=== PATIENT | female | born 2000 | race Caucasian/White ===

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

== ENCOUNTER 2018-08-03 09:55 | Emergency (ER) | payer OTHER ==
[2018-08-03 10:18] VITALS: BP 126/78; PULSE 93; RESP 16; TEMP 98.2; O2SAT 100
--- NOTE | 2018-08-03 10:36 | C.PDOC ---
History Of Present Illness 18 y/o female presents to the ED with complaints of dizziness since waking up today. Patient states last night she developed a headache and accidentally took 1 tab of her mothers Lyrica. Reports she was half asleep, thought she took Tylenol or Motrin. Patient now complaints of feeling nauseous and dizzy. Denies any vomiting, syncope, visual changes, fever, neck stiffness, shortness of breath, or URI symptoms. LMP was 2 weeks ago. Time Seen by Provider: 08/03/18 10:20 Chief Complaint (Nursing): Medical Clearance History Per: Patient History/Exam Limitations: no limitations Onset/Duration Of Symptoms: Hrs Current Symptoms Are (Timing): Still Present Past Medical History Reviewed: Historical Data, Nursing Documentation, Vital Signs Vital Signs: Last Vital Signs Temp 98.2 F 08/03/18 10:12 Pulse 93 H 08/03/18 10:12 Resp 16 08/03/18 10:12 BP 126/78 08/03/18 10:12 Pulse Ox 100 08/03/18 10:12 - Medical History PMH: Asthma Family History: States: Unknown Family Hx - Social History Hx Alcohol Use: No Hx Substance Use: No - Immunization History Hx Tetanus Toxoid Vaccination: No Hx Influenza Vaccination: No Hx Pneumococcal Vaccination: No Review Of Systems Except As Marked, All Systems Reviewed And Found Negative. Constitutional: Negative for: Fever, Chills Eyes: Negative for: Vision Change ENT: Negative for: Nose Congestion Respiratory: Negative for: Cough Gastrointestinal: Positive for: Nausea. Negative for: Vomiting, Abdominal Pain Musculoskeletal: Negative for: Neck Pain Neurological: Positive for: Headache (last night), Dizziness. Negative for: Weakness, Numbness, Change in Speech, Confusion Physical Exam - Physical Exam Appears: Non-toxic, No Acute Distress, Other (Speaking in full sentences) Skin: Warm, Dry, Other (No pallor or icterus) Head: Atraumatic, Normacephalic Eye(s): bilateral: Normal Inspection (no nystagmus), PERRL, EOMI Oral Mucosa: Moist Neck: Normal ROM, Supple Chest: Symmetrical Cardiovascular: Rhythm Regular, Other (Normal S1, S2) Respiratory: No Rhonchi, No Wheezing, Other (Lungs clear to auscultation bilaterally, normal inspiratory effort) Gastrointestinal/Abdominal: Bowel Sounds (normal), Soft, No Tenderness Extremity: Bilateral: Atraumatic, Normal Color And Temperature Neurological/Psych: Oriented x3, Normal Speech, Normal Cranial Nerves, Normal Motor (5/5 strength throughout), Normal Sensation Gait: Steady ED Course And Treatment O2 Sat by Pulse Oximetry: 100 (RA) Pulse Ox Interpretation: Normal Medical Decision Making Medical Decision Making: Plan: POC urine preg ordered. Progress: POC negative. Reassured patient of normal exam on today's visit. Discussed the side effects of the medication, which include dizziness. Patient remains AAOx3, neurologically intact, and is stable for d/c home. Advised patient to follow up with PMD for further evaluation. Disposition Counseled Patient/Family Regarding: Diagnosis - Disposition Referrals: [facility] [Outside] Disposition: HOME/ ROUTINE Disposition Time: 10:37 Condition: STABLE Additional Instructions: SARI MARIA, thank you for letting us take care of you today. Your provider was Elizabeth Raman MD and you were treated for TOOK THE WRONG MEDICATION. The emergency medical care you received today was directed at your acute symptoms. If you were prescribed any medication, please fill it and take as directed. It may take several days for your symptoms to resolve. Return to the Emergency Department if your symptoms worsen, do not improve, or if you have any other problems. Please contact your doctor or call one of the physicians/clinics you have been referred to that are listed on the Patient Visit Information form that is included in your discharge packet. Bring any paperwork you were given at discharge with you along with any medications you are taking to your follow up visit. Our treatment cannot replace ongoing medical care by a primary care provider outside of the emergency department. Thank you for allowing the [facility] team to be part of your care today. Instructions: Dizziness, Nonvertigo, (DC), Adverse Drug Reactions, Adult (DC) Forms: General Discharge Instructions, [facility] (Greek), School Excuse, Work Excuse - POA Present On Arrival: None - Clinical Impression Clinical Impression: Drug ingestion, accidental, Dizziness - Scribe Statement The provider has reviewed the documentation as recorded by the Abhijit Barlow Provider Attestation: All medical record entries made by the Nonaibelroy were at my direction and personally dictated by me. I have reviewed the chart and agree that the record accurately reflects my personal performance of the history, physical exam, medical decision making, and the department course for this patient. I have also personally directed, reviewed, and agree with the discharge instructions and disposition.
== END 2018-08-03 10:58 | disposition home or self-care (01) ==
LOC: C.ER 09:55
DX: T42.6X1A Poisoning by other antiepileptic and sedative-hypnotic drugs, accidental (unintentional), initial encounter (principal); R42 Dizziness and giddiness; Y92.89 Other specified places as the place of occurrence of the external cause